=== PATIENT | female | born 2000 | race African-American/Black ===

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

== ENCOUNTER 2021-01-30 05:56 | Emergency (ER) | payer OTHER, MEDICAID ==
[~2021-01-30] VITALS: Ht 170.2 cm; Wt 93.4 kg
[~2021-01-30 05:56] MED LIST changes: +ABILIFY10 MG PO; +BIRTH CONTROL PO; +METFORMIN HCL500 MG PO; +STOOL SOFTENER100 MG PO; +TOPAMAX50 MG PO
[2021-01-30] MEDS ORDERED: IRON18 M1 PO (06:28)
[2021-01-30] MEDS ORDERED: ABILIFY15 MG PO (06:29)
[2021-01-30] MEDS ORDERED: LEXAPRO 10 MG T10 M1 PO (06:30)
[2021-01-30] MEDS ORDERED: CLARITIN10 M2 PO (06:30)
[2021-01-30] MEDS ORDERED: LARIN1 EACH PO (06:31)
[2021-01-30 06:55] LABS: INFLUENZA A ANTIGEN Negative (Negative); INFLUENZA B ANTIGEN Negative (Negative)
[2021-01-30] MEDS ORDERED: FLONASE 0.05%50 MCG NARES (06:56)
[2021-01-30 07:17] VITALS: BP 100/65
== END 2021-01-30 07:17 | disposition home or self-care (01) ==
LOC: M.ERS 05:56
PROVIDERS: Emergency Medicine
DX: R05.9 Cough, unspecified (principal); Z20.822 Contact with and (suspected) exposure to COVID-19; F90.9 Attention-deficit hyperactivity disorder, unspecified type; F41.9 Anxiety disorder, unspecified; E11.9 Type 2 diabetes mellitus without complications; Z91.048 Other nonmedicinal substance allergy status; Z79.899 Other long term (current) drug therapy